=== PATIENT | female | born 1950 | race Caucasian/White ===

== ENCOUNTER → 2017-03-11 | Outpatient (CLI) | payer OTHER, MEDICARE | LOC: CIMAGING 14:28 | PROVIDERS: ATTEND Internal Medicine | DX: Z12.31 Encounter for screening mammogram for malignant neoplasm of breast (principal) | CPT/HCPCS: G0202 ==

== ENCOUNTER 2017-08-04 19:32 | Observation (INO) | payer OTHER, MEDICARE ==
--- NOTE | 2017-08-04 19:40 | EDPHY ---
H & P Source: Patient HPI/ROS: HPI CHIEF COMPLAINT: Shortness of breath, dyspnea on exertion HISTORY OF PRESENT ILLNESS: Patient very pleasant 67-year-old female, significant past medical history for asthma does not take any daily medications , she presents emergency room stating that for the past 6 days she has had worsening shortness of breath with dyspnea on exertion. She states on Wednesday she know she was short of breath. When she walks her dog she felt short of breath and afterwards it took a while for her to regain her breath. She thought maybe was her asthma acting up she used her albuterol inhaler which did not really help. She then noticed a mi walk to [place] and got dyspnea on exertion had to stop and take a break. Sometimes she gets chest discomfort, pressure in center of her chest to her back with exertion. Does have some mild pleuritic pain when she takes deep breath in. Denies crushing or substernal chest pain. Denies any jaw pain or arm pain numbness or tingling or focal nausea vomiting or weakness. Does complain of dysuria is where she has shortness of breath. Dry bronchitic cough. No fever. Past Medical History: Asthma Past Surgical History: No recent surgery Social History: Denies drugs alcohol tobacco. 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 ROS REVIEW OF SYSTEMS: A comprehensive 10 point review of systems is otherwise negative aside from elements mentioned in the history of present illness. Exam Constitutional appears well nontoxic no acute distress, triage nursing summary reviewed, vital signs reviewed, awake/alert. Eyes normal conjunctivae and sclera, EOMI, PERRLA. HENT normal inspection, atraumatic, moist mucus membranes, no epistaxis, neck supple/ no meningismus, no raccoon eyes. Respiratory bronchitic sounding cough on exam otherwise clear lungs. Cardiovascular rate normal, regular rhythm, no murmur, no edema, distal pulses normal. Gastrointestinal soft, non-tender, no rebound, no guarding, normal bowel sounds, no distension, no pulsatile mass. Genitourinary no CVA tenderness. Musculoskeletal no midline vertebral tenderness, full range of motion, no calf swelling, no tenderness of extremities, no meningismus, good pulses, neurovascularly intact. Skin pink, warm, & dry, no rash, skin atraumatic. Neurologic awake, alert and oriented x 3, AAOx3, moves all 4 extremities equally, motor intact, sensory intact, CN II-XII intact, normal cerebellar, normal vision, normal speech. Psychiatric normal mood/affect. Heme/Lymph/Immune no lymphadenopathy. Differential Diagnosis: Includes but is not limited to in a particular order, upper respiratory tract infection, bronchitis, viral syndrome, pneumonia, pneumothorax, CHF, acute coronary syndrome, influenza Medical Decision Making: Plan for this patient EKG, full cardiac care unit nurse, DuoNeb breathing treatment to see if this improves her shortness of breath, basic blood work, troponin, electrolytes and influenza and re-evaluate. Re-evaluation: EKG interpretation by me on record in [facility] system. Impression time of EKG 1952, sinus rhythm rate of 65. I do not appreciate acute ischemic change. No ST elevation or ST depression no significant T-wave abnormalities. Unremarkable nonischemic EKG. 2025: Patient re-evaluated feels much better after a DuoNeb breathing treatment. Good air movement. States this sensation of shortness of breath is much improved after DuoNeb breathing treatment. 2121: Patient requesting discharge she feels much better after DuoNeb breathing treatment. I told her that we should walker vigorously rather emergency room make sure does not not controlled of breath or develops chest pain. 2129: Patient ambulated throughout the emergency room if develops chest discomfort substernal radiates to her back. She did have some mild shortness of breath. Due to the chest discomfort with exertion and shortness of breath she will be admitted over the hospital for cardiac evaluation and rule out. She has agreed for this. Agrees for transfer. Agrees for admission. Reason for admission chest discomfort shortness of breath worse with exertion. Repeat Ekg: Time of repeat EKG 2135, sinus arrhythmia otherwise no acute ischemic change. Appreciate ST elevation. No significant T-wave abnormalities. No significant ST depression. 2157: Patient declined aspirin full dose here as it upset stomach additionally decline nitroglycerin. She has agreed for admission for further cardiac evaluation. Patient agrees for hospital admission over [facility] for chest pain and dyspnea on exertion cardiac rule out. I did speak with the hospitalist service Dr. Pitt who agrees to admit this patient. Here in this emergency room EKGs are nonischemic. Troponin negative. Chest x- ray unremarkable. Unfortunately at this time [facility] is full. Patient still would like to go to [facility]. She understands she will need to board in the emergency room briefly until bed opens up up stairs. I did speak with Dr. Krista Mckee who agrees to accept the patient in transfer to the ER. Hospitalist service to see. (Giancarlo Delaney) Constitutional: Initial Vital Signs Temperature (C) 36.6 C 08/04/17 19:35 Heart Rate 74 08/04/17 19:35 Respiratory Rate 18 08/04/17 19:35 Blood Pressure 142/91 H 08/04/17 19:35 O2 Sat (%) 96 08/04/17 19:35 O2 Delivery Mode Room Air Allergies/Adverse Reactions: promethazine HCl [From Phenergan] Allergy (Verified 06/08/13 13:08) Sulfa (Sulfonamide Antibiotics) Allergy (Verified 06/08/13 13:08) Home Medications: Medication Instructions Recorded Topiramate [Topamax 25MG (*)] 25 mg PO DAILY 08/23/09 Acetaminophen [Tylenol 325mg (*)] 325 - 650 mg PO DAILY PRN 08/05/17 Cholecalciferol Vit D3 [Vitamin D3 1,000 units PO DAILY 08/05/17 (*)] Glucosamine/Chondroitin 1 each PO DAILY 08/05/17 [Glucosamine/Chondroitin (*)] Herbals/Supplements -Info Only 1 ea PO DAILY 08/05/17 Ibuprofen [Motrin (*)] 200 - 400 mg PO DAILY PRN 08/05/17 Levalbuterol Inhaler [Xopenex Hfa 1 puffs IH TID PRN 08/05/17 Inhaler (*)] Medical Decision Making ED Course/Re-evaluation: 729: Pt had episode of cp. Lasted 3-4 minutes, now completely resolved. Repeat EKG: NSR, 66, no ST/T changes, troponin ordered. (Chio Brown) - Data Points Laboratory Results: Laboratory Results 08/04/17 20:00 08/04/17 20:00 Medications Given: Discontinued Medications Acetaminophen (Tylenol) 650 mg PO Q4HRS PRN PRN Reason: Pain, Mild/Fever, Can Take PO Stop: 01/31/18 22:24 Last Admin: 08/05/17 11:09 Dose: 650 mg Albuterol/Ipratropium (Duoneb) 3 ml IH EDNOW ONE Stop: 08/04/17 19:47 Last Admin: 08/04/17 20:08 Dose: 3 ml Aspirin Buffered (Aspirin Ec) 325 mg PO ONCALL ONE Stop: 08/05/17 10:54 Last Admin: 08/05/17 11:09 Dose: 325 mg Diazepam (Valium) 5 mg PO ONCALL ONE Stop: 08/05/17 10:54 Last Admin: 08/05/17 11:09 Dose: 5 mg Diphenhydramine HCl (Benadryl) 25 mg PO ONCALL ONE Stop: 08/05/17 10:54 Last Admin: 08/05/17 11:09 Dose: 25 mg Enoxaparin Sodium (Lovenox) 40 mg SC DAILY DELMAR Stop: 02/01/18 08:59 Last Admin: 08/05/17 17:17 Dose: Not Given Famotidine (Pepcid) 20 mg PO ONCALL ONE Stop: 08/05/17 10:54 Last Admin: 08/05/17 11:09 Dose: 20 mg Sodium Chloride (Ns) 1,000 mls @ 0 mls/hr IV EDNOW ONE; Wide Open PRN Reason: Protocol Stop: 08/04/17 19:47 Last Admin: 08/04/17 20:06 Dose: 1,000 mls Departure - Departure Disposition: [facility] Inpatient Acute Clinical Impression: Shortness of breath Chest pain Qualifiers: Chest pain type: unspecified Qualified Code(s): R07.9 - Chest pain, unspecified Condition: Fair
[2017-08-04] MEDS ORDERED: IPRATROPIUM/ALBUTEROL 3 ML DEYVIAL IH ONE (19:46)
[2017-08-04] MEDS ORDERED: NS 1,000 ML IV ONE (19:46)
--- NOTE | 2017-08-04 19:55 | CPEKG ---
Heart Rate: 65 RR Interval: 923 P-R Interval: 140 QRSD Interval: 88 QT Interval: 396 QTC Interval: 412 P [place]: -4 QRS [place]: 45 T Wave [place]: 35 EKG Severity - NORMAL ECG - EKG Impression: SINUS RHYTHM Electronically Signed By: Giancarlo Delaney 04-Aug-2017 22:09:21
[2017-08-04 20:04] LABS: PLATELET COUNT 221 10^3/uL (150-400)
[2017-08-04 20:17] LABS: INR 0.96 (0.83-1.16); PROTIME(PATIENT) 12.7 SEC (12.0-15.0)
[2017-08-04 20:25] LABS: CREATINE KINASE 44 IU/L (0-156)
--- NOTE | 2017-08-04 21:38 | CPEKG ---
Heart Rate: 71 RR Interval: 845 P-R Interval: 148 QRSD Interval: 88 QT Interval: 396 QTC Interval: 431 P [place]: 74 QRS [place]: 34 T Wave [place]: 16 EKG Severity - OTHERWISE NORMAL ECG - EKG Impression: SINUS ARRHYTHMIA, RATE 55-79 Electronically Signed By: Giancarlo Delaney 04-Aug-2017 22:09:21
[2017-08-04] MEDS ORDERED: ONDANSETRON DISINTEGRATING 4 MG TAB PO PRN (22:25)
[2017-08-04] MEDS ORDERED: ONDANSETRON 4 MG/2 ML VIAL IVP PRN (22:25)
[2017-08-04] MEDS ORDERED: ALBUTEROL 3 ML DEYVIAL IH PRN (23:38)
[2017-08-05] MEDS: ACETAMINOPHEN 325 MG TAB PO PRN ×2 (00:25→11:09)
--- NOTE | 2017-08-05 00:54 | PDGENHP ---
History and Physical - Chief Complaint Chest pain - History of Present Illness 67 yo F w/ hx of exercise induced asthma presents with chest tightness and CAMARENA. Patient is usually very healthy and is currently training for a race. She reports she had a bad cold in May but thinks this improved. Then, 3 days ago after a run, she began to notice central chest discomfort and CAMARENA. This has persisted since, requiring her to take brakes after walking even short distances. She received a nebulizer treatment in the ED that she only found minimally helpful. Of note, patient reports a cardiac cath about [address] Lopez that was normal. This was performed because her father had CHF and congenital narrowing of the coronary arteries. History Information - Allergies/Home Medication List Allergies/Adverse Reactions: promethazine HCl [From Phenergan] Allergy (Verified 06/08/13 13:08) Sulfa (Sulfonamide Antibiotics) Allergy (Verified 06/08/13 13:08) Home Medications: NO HOME MEDS 08/23/09 [Last Taken Unknown] I have personally reviewed and updated: family history, medical history - Past Medical History asthma - Surgical History Reports: no pertinent surgical hx - Family History Positive for: CAD Additional family history: CHF - Social History Smoking Status: Never smoked Review of Systems Review of Systems: ROS: 10pt was reviewed & negative except for what was stated in HPI & below Physical Exam Physical Exam: Temp Pulse Resp BP Pulse Ox 36.5 C 77 20 129/72 H 96 08/04/17 23:17 08/05/17 00:26 08/05/17 00:26 08/05/17 00:26 08/05/17 00:26 Constitutional: no apparent distress, not in pain Eyes: PERRL, EOMI Ears, Nose, Mouth, Throat: moist mucous membranes, no oral mucosal ulcers Cardiovascular: regular rate and rhythym, no murmur, rub, or gallop Respiratory: no respiratory distress, no rales or rhonchi Gastrointestinal: normoactive bowel sounds, soft, non-tender abdomen Skin: warm, normal color Musculoskeletal: full muscle strength, no muscle tenderness Neurologic: AAOx3, CN II-XII Intact Psychiatric: interacting appropriately, not anxious Lab Data & Imaging Review 08/04/17 20:00 08/04/17 20:00 WBC 5.08 10^3/uL (3.80-9.50) 08/04/17 20:00 RBC 4.70 10^6/uL (4.18-5.33) 08/04/17 20:00 Hgb 14.4 g/dL (12.6-16.3) 08/04/17 20:00 Hct 41.0 % (38.0-47.0) 08/04/17 20:00 MCV 87.2 fL (81.5-99.8) 08/04/17 20:00 MCH 30.6 pg (27.9-34.1) 08/04/17 20:00 MCHC 35.1 g/dL (32.4-36.7) 08/04/17 20:00 RDW 13.2 % (11.5-15.2) 08/04/17 20:00 Plt Count 221 10^3/uL (150-400) 08/04/17 20:00 MPV 10.0 fL (8.7-11.7) 08/04/17 20:00 Neut % (Auto) 53.1 % (39.3-74.2) 08/04/17 20:00 Lymph % (Auto) 36.0 % (15.0-45.0) 08/04/17 20:00 Rosebud % (Auto) 9.3 % (4.5-13.0) 08/04/17 20:00 Eos % (Auto) 0.8 % (0.6-7.6) 08/04/17 20:00 Baso % (Auto) 0.6 % (0.3-1.7) 08/04/17 20:00 Nucleat RBC Rel Count 0.0 % (0.0-0.2) 08/04/17 20:00 Absolute Neuts (auto) 2.70 10^3/uL (1.70-6.50) 08/04/17 20:00 Absolute Lymphs (auto) 1.83 10^3/uL (1.00-3.00) 08/04/17 20:00 Absolute Monos (auto) 0.47 10^3/uL (0.30-0.80) 08/04/17 20:00 Absolute Eos (auto) 0.04 10^3/uL (0.03-0.40) 08/04/17 20:00 Absolute Basos (auto) 0.03 10^3/uL (0.02-0.10) 08/04/17 20:00 Absolute Nucleated RBC 0.00 10^3/uL (0-0.01) 08/04/17 20:00 Immature Gran % 0.2 % (0.0-1.1) 08/04/17 20:00 Immature Gran # 0.01 10^3/uL (0.00-0.10) 08/04/17 20:00 PT 12.7 SEC (12.0-15.0) 08/04/17 20:00 INR 0.96 (0.83-1.16) 08/04/17 20:00 APTT 26.9 SEC (23.0-38.0) 08/04/17 20:00 D-Dimer 0.29 ug/mLFEU (0.00-0.50) 08/04/17 20:00 Sodium 142 mEq/L (135-145) 08/04/17 20:00 Potassium 4.3 mEq/L (3.5-5.2) 08/04/17 20:00 Chloride 102 mEq/L (97-110) 08/04/17 20:00 Carbon Dioxide 25 mEq/l (22-31) 08/04/17 20:00 Anion Gap 15 mEq/L (8-16) 08/04/17 20:00 BUN 19 mg/dL (7-23) 08/04/17 20:00 Creatinine 0.8 mg/dL (0.6-1.0) 08/04/17 20:00 Estimated GFR > 60 08/04/17 20:00 Glucose 91 mg/dL (70-100) 08/04/17 20:00 Calcium 10.6 mg/dL (8.5-10.4) H 08/04/17 20:00 Magnesium 2.0 mg/dL (1.6-2.3) 08/04/17 20:00 Total Bilirubin 1.1 mg/dL (0.1-1.4) 08/04/17 20:00 Conjugated Bilirubin 0.3 mg/dL (0.0-0.5) 08/04/17 20:00 Unconjugated Bilirubin 0.8 mg/dL (0.0-1.1) 08/04/17 20:00 AST 28 IU/L (14-46) 08/04/17 20:00 ALT 47 IU/L (9-52) 08/04/17 20:00 Alkaline Phosphatase 107 IU/L (38-126) 08/04/17 20:00 Creatine Kinase 44 IU/L (0-156) 08/04/17 20:00 CK-MB (CK-2) Fraction 0.34 ng/mL (0.00-4.55) 08/04/17 20:00 Troponin I < 0.012 ng/mL (0.000-0.034) 08/04/17 20:00 NT-Pro-B Natriuret Pep 54 pg/mL (0-125) 08/04/17 20:00 Total Protein 7.3 g/dL (6.3-8.2) 08/04/17 20:00 Albumin 4.2 g/dL (3.5-5.0) 08/04/17 20:00 Lipase 62 IU/L (23-300) 08/04/17 20:00 Influenza A,B Rapid NEGATIVE FOR FLU (NEGATIVE) 08/04/17 19:55 Imaging Review: Imaging Impressions Chest X-Ray 08/04/17 19:46 Impression: 1. COPD. 2. No definite pneumonia. Visualized and Interpreted EKG results: Yes EKG Interpretation: Positive for: normal sinsus rhythm Assessment & Plan Assessment: 67 yo F w/ hx of exercise induced asthma presents with CP and CAMARENA. Plan: 1. Chest pain - Described as central chest tightness and associated with CAMARENA. Etiology of this is unclear. Possibilities include CAD, lingering effects of infection in May, and poorly controlled respiratory disease. CXR does show features c/w obstructive pulmonary disease. - Admit to PCU for observation - Monitor on telemetry, trend cardiac enzymes - Graded exercise stress test ordered for the morning - If stress test normal, would recommend outpatient PFTs as patient may benefit from increased therapy for her obstructive pulmonary disease 2. Asthma - Patient states this is exercise induced, she takes only Xopenex PRN for this. Diet - Regular, NPO @ MN pending risk stratification Code - Full Ppx - LMWH Dispo - Admit to PCU under observation status
--- NOTE | 2017-08-05 07:18 | CPEKG ---
Heart Rate: 66 RR Interval: 909 P-R Interval: 156 QRSD Interval: 84 QT Interval: 388 QTC Interval: 407 P [place]: 59 QRS [place]: 48 T Wave [place]: 44 EKG Severity - NORMAL ECG - EKG Impression: SINUS RHYTHM Electronically Signed By: Chilo Boateng 07-Aug-2017 08:22:33
--- NOTE | 2017-08-05 08:11 | HOSPPROG ---
Hospitalist Progress Note Assessment/Plan: #Acute chest pain -EKGs/trop negative for ischemia -exercise treadmill positive. Cath showed no CAD #Asthma: h/o exercise-induced -referral to pulmonology Disp: DC today Subjective: no CP today Objective: Vital Signs Temp Pulse Resp BP Pulse Ox 36.7 C 64 18 111/75 96 08/05/17 07:54 08/05/17 07:54 08/05/17 07:54 08/05/17 07:54 08/05/17 07:07 Laboratory Results 08/05/17 05:40 08/04/17 08/05/17 08/06/17 05:59 05:59 05:59 Intake Total 1000 Balance 1000 PT 12.7 SEC (12.0-15.0) 08/04/17 20:00 INR 0.96 (0.83-1.16) 08/04/17 20:00 - Physical Exam Constitutional: no apparent distress Eyes: PERRL Ears, Nose, Mouth, Throat: moist mucous membranes Cardiovascular: regular rate and rhythym, no murmur, rub, or gallop, No edema Respiratory: no respiratory distress, No expiratory wheeze, No inspiratory crackles Gastrointestinal: normoactive bowel sounds, soft, non-tender abdomen Genitourinary: no bladder fullness Skin: warm Musculoskeletal: full muscle strength Neurologic: AAOx3, CN II-XII Intact Psychiatric: interacting appropriately ICD10 Worksheet Patient Problems: Problems Problem Status Onset Chest pain Acute Shortness of breath Acute
[2017-08-05] MEDS ORDERED: ENOXAPARIN 40 MG/0.4 ML SYR SC SCH (09:00)
[2017-08-05] MEDS ORDERED: ASPIRIN EC 325 MG TAB PO ONE (10:53)
[2017-08-05] MEDS ORDERED: TEMAZEPAM 15 MG CAP PO PRN (10:53)
[2017-08-05] MEDS ORDERED: DIAZEPAM 5 MG TAB PO ONE (10:53)
[2017-08-05] MEDS ORDERED: NITROGLYCERIN 0.4 MG BTL SL PRN (10:53)
[2017-08-05] MEDS ORDERED: diphenhydrAMINE 25 MG CAP PO ONE (10:53)
[2017-08-05] MEDS ORDERED: FAMOTIDINE 20 MG TAB PO ONE (10:53)
--- NOTE | 2017-08-05 10:55 | PDPROPOC ---
Sedation Plan of Care Sedation Plan of Care: vital signs stable, mental status noted, patient educated of risks, benefits, alternatives, patient can tolerate sedation ASA Classification: ASA 2 Planned drugs: fentanyl, midazolam Mallampati Score: Class 1 Mallampati Reference Image:
--- NOTE | 2017-08-05 10:56 | PDHPUP ---
History & Physical Update H&P update statement: This history and physical update is based on an assessment of the patient which was completed after admission or registration (within 24 hours), but prior to the surgery/procedure. H&P update: H&P reviewed & patient examined, no change in patient's condition since H&P completed
[2017-08-05] MEDS ORDERED: DIAZEPAM 5 MG TAB ONE (11:13)
--- NOTE | 2017-08-05 11:45 | CPR ---
[f rep st] NONINVASIVE CARDIAC PROCEDURE REPORT DATE OF PROCEDURE: 08/05/2017 PROCEDURE: Exercise treadmill test. INDICATION: The patient is a 67-year-old female who developed back pain which radiated to her chest and significant dyspnea on exertion after her run on Wednesday. Since that time, she has had predictabl e chest discomfort with even minimal exercise. She denies any history of hypertension, hyperlipidemi a, diabetes, or tobacco use. Her father was diagnosed with coronary disease and told he had small ar teries at the age of 78. DESCRIPTION OF PROCEDURE: Consent was obtained and the patient was placed on continuous telemetry. Her resting EKG revealed normal sinus rhythm with a heart rate of 82. She has nonspecific ST-T wave changes diffusely. She walked on the treadmill for 6 minutes, but developed chest discomfort in the 1st stage of exercise. She had [address] depression with initial exercise and within 5 minutes of e xertion, she had at least [address] depression diffusely. There was also ST elevation in AVR of gre ater than 1 mm. The stress test was terminated secondary to ST changes and chest pressure. The myla ent was monitored and her chest discomfort resolved at 8 minutes into recovery. She described it as a pressure. Her EKG changes improved at that time as well. PLAN: Positive exercise treadmill test. The patient will be taken to the director of labor and delivery later this aftern oon. /[id number]/MODL
--- NOTE | 2017-08-05 12:46 | GCON ---
[f rep st] CONSULTATION CARDIAC CONSULTATION DATE OF CONSULTATION: 08/05/2017 CHIEF COMPLAINT: Shortness of breath and chest discomfort. HISTORY OF PRESENT ILLNESS: The patient is a 67-year-old female who presented to the hospital with dyspnea on exertion and back pain which radiated to her chest. She is a very active individual and has been training for a 5K. On Wednesday, she went for a walk/run and after returning from her run, she developed significant shortness of breath as well as back pain which radiated to her chest. Since then, she has noted back pain and even more prominent dyspnea on exertion with even minimal exercise such as walking up a flight of stairs or down the [place]. She had an exercise treadmill test today which was positive for ischemia. She is currently chest pain free. She denies any history of diabetes , hyperlipidemia, hypertension, or ongoing tobacco use. Her father was told he had small arteries at age of 78. PAST MEDICAL HISTORY: Migraines. PAST SURGICAL HISTORY: Noncontributory. FAMILY HISTORY: Her father was told he had small arteries at the age of 78. He did require pacemaker later on as well. SOCIAL HISTORY: She is currently accompanied by her . 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 She denies any tobacco use or drug use. She is very active, exercising on a regular basis. HOME MEDICATIONS: Topamax 25 mg daily. Xopenex inhaler, Motrin p.r.n., herbal supplement, vitamin D3, Tylenol p.r.n. ALLERGIES: Phenergan and sulfa. REVIEW OF SYSTEMS: Negative except for what is stated in the H and P. PHYSICAL EXAMINATION: GENERAL: Patient appears in no acute distress. VITALS: Blood pressure 111/75, heart rate 64, oxygen saturation of 96% on room air. Afebrile. NECK: No carotid bruits or JVD present. LUNGS: Clear to auscultation. No wheezes, rhonchi, or crackles auscultated. CARDIAC: Regular rate and rhythm without any significant murmurs, rubs, or gallops appreciated. ABDOMEN: Soft, nontender, nondistended. Bowel sounds present. EXTREMITIES: Palpable pulses bilaterally without any evidence of edema. NEUROLOGIC: Nonfocal. PSYCHIATRIC: Mood and affect appropriate. SKIN: No obvious rashes or ecchymosis identified. LABORATORY: CBC within normal limits. BMP within normal limits except for an elevated sodium of 148. Troponin negative x2. BNP 54. Lipase 62. D-dimer 0.29. INR 0.96. DIAGNOSTIC STUDIES: Resting EKG reveals normal sinus rhythm at a rate of [address]-T wave changes. Exercise treadmill test and showed at least [address] depression diffusely with ST elevation in AVR concerning for coronary ischemia. Chest x-ray shows COPD without pneumonia. ASSESSMENT: The patient is a 67-year-old female who presents with angina and abnormal exercise treadmill test. PLAN: The patient is a 67-year-old female who presents to the hospital with dyspnea on exertion as well as back and chest pain concerning for coronary ischemia. Her exercise treadmill test was positive, suggesting ischemia with at least [address] depression diffusely and [address] elevation in AVR. She also developed chest discomfort on the treadmill, which resolved 8 minutes into recovery. Further evaluation with a coronary angiogram was discussed with the patient. The risks, benefits, and alternatives were discussed and she would like to proceed. She will be scheduled for an angiogram later this afternoon. /[id number]/MODL MTDD
--- NOTE | 2017-08-05 12:50 | ASMTCASEMG ---
Living Arrangements What is your living Answers: With Spouse arrangement? Who do you live with? Type Of Residence What kind of residence do Answers: House you live in? Discharge Plan Comments Coordination Status Comments Notes: Discussed pts case in morning rounds. Pt is a 67 y/o female admitted for shortness of breath and dyspnea on exertion. Pt will most likely d/c independent when medically stable. No therapies ordered at this time. CM available for changes. Plan: Independent Date Signed: 08/05/2017 12:49 PM Electronically Signed By:ANGELIA Ambriz
[2017-08-05] MEDS ORDERED: LIDOCAINE 1% 300 MG/30 ML SDV ONE (13:58)
[2017-08-05] MEDS ORDERED: MIDAZOLAM 2 MG/2 ML VIAL ONE (13:58)
[2017-08-05] MEDS ORDERED: fentaNYL 100 MCG/2 ML INJ ONE (13:58)
[2017-08-05] MEDS ORDERED: HEPARIN 10,000 UNIT/10 ML MDV (1,000 UNIT/ML) ONE (13:59)
[2017-08-05] MEDS ORDERED: IOPAMIDOL (ISOVUE-370) 150 ML BTL IV ONE (13:59)
[2017-08-05] MEDS ORDERED: VERAPAMIL 5 MG/2 ML VIAL ONE (13:59)
[2017-08-05] MEDS ORDERED: ATROPINE SULFATE 1 MG/10 ML SYR IVP PRN (15:30)
--- NOTE | 2017-08-05 15:33 | PDDXCAT ---
Diagnostic Cath Note - . Date: 08/05/17 [employer] Designer: John Indication: Class I/II angina, intolerance to med therapy or failure to respond High-risk criteria on non-invasive testing: high-risk treadmill score (score<=- 11) - Procedure Access: left wrist Procedure: left heart catheterization - Materials Left Heart Cath size: 5F Left Heart Cath materials: JL3.5, JR4.0 - Findings-Left Heart Catheterization LM: Normal LAD: Normal LCX: Normal RCA: Dominant: Normal Complications: None Estimated blood loss: <50ml Closure method: TR Band Assessment: Angiographically normal coronary arteries Plan: Medical therapy Patient Problems: Problems Problem Status Onset Chest pain Acute Shortness of breath Acute
[2017-08-05 17:10] VITALS: BP 111/67; PULSE 61; RESP 12; TEMP 98; O2SAT 95
--- NOTE | 2017-08-05 17:51 | ECHO ---
[email or web address] [address] Main: [phone] Fax: Transthoracic Echocardiogram Name: RINA GRANDE MR#: [id number] Study Date: 08/05/2017 Study Time: 03:43 PM Date of : 1950 Age: 67 year(s) Height: 172.7 cm (68 in.) Weight: 69.85 kg (154 lb.) BSA: 1.83 m2 Gender: Female Examination: Echo Indication: Post Cath Image Quality: Contrast: Requested by: Man Lopez BP: 137 mmHg/82 mmHg Heart Rate: Rhythm: Normal sinus rhythm Indication: Post Cath Procedure Staff Ship Propeller Finisher: Kane Parnell RDCS Reading Physician: Ronni Valentin Requesting Provider: Conclusions: Normal size left ventricle. Normal global systolic LV function. EF is 67 %. No regional wall motion abnormality. Diastolic dysfunction is present. . Measurements: Chambers Valvular Assessment AV/MV Valvular Assessment TV/PV Normal Normal Normal Name Value Range Name Value Range Name Value Range Ao Sandra (MM): 2.6 cm (2.2 cm-3.7 AV Vmax: 1.29 m/s (1 m/s-1.7 cm) m/s) IVSd (2D): 0.9 cm (0.6 cm-1.1 AV maxP mmHg ( - ) cm) LVOT Vmax: 0.62 m/s (0.7 m/s-1.1 LVDd (2D): 4.1 cm (3.9 cm-5.3 m/s) cm) MV E Vmax: 0.71 m/s ( - ) LVDs (2D): 2.6 cm (2.1 cm-4 MV A Vmax: 0.78 m/s ( - ) cm) MV E/A: 0.91 ( - ) LVPWd (2D): 1.0 cm ( - ) LVEF (2D): 67 (>=54 %) Continued Measurements: Chambers Valvular Assessment AV/MV Name Value Name Value LADs Lon.3 cm MV E/E' Septal: 9.20 LA Area: 14.1 cm2 MV E/E' Lateral: 8.90 Patient: RINA GRANDE Study Date: 08/05/2017 Page 1 of 2 03:43 PM Findings: Left Ventricle: Normal size left ventricle. No LV hypertrophy. Normal global systolic LV function. EF is 67 %. No regional wall motion abnormality. Diastolic dysfunction is present. . Right Ventricle: Normal size right ventricle. Normal RV function. Left Atrium: The left atrium is normal in size. Right Atrium: The right atrium is normal in size. Mitral Valve: The mitral valve is normal in appearance and function. Aortic Valve: The aortic valve is normal in appearance and function. There is no aortic valve regurgitation. Tricuspid Valve: The tricuspid valve is normal in appearance and function. Pulmonic Valve: The pulmonic valve is normal in appearance and function. Aorta: The aorta is normal. Pericardium: No pericardial effusion. There is pericardial fat. (No Signature Object) Patient: RINA GRANDE Study Date: 08/05/2017 Page 2 of 2 03:43 PM [id number]
--- NOTE | 2017-08-05 19:58 | GDS ---
[f rep st] DISCHARGE SUMMARY DISCHARGE DIAGNOSES: 1. Atypical chest pain. 2. History of exercise-induced asthma. PROCEDURES: 1. Cardiac cath 08/05/2017 normal coronaries. 2. Exercise treadmill test. Positive exercise test with [address] depression diffusely. HISTORY OF PRESENT ILLNESS: A pleasant 67-year-old female with history of exercise-induced asthma, p resenting with chest tightness and dyspnea on exertion. She is very healthy and is currently trainin g for a 5K run. She reports having a bad cold in May, but thinks that improved. Three days ago after a run, she noticed central chest discomfort and dyspnea with exertion. This has persisted sin ce, requiring her to take breaks after walking even short distances. She received a neb treatment in the ED that only minimally helped. She had a cardiac catheterization [address] John benton hat was normal. HOSPITAL COURSE BY PROBLEM: 1. Chest pressure: Initial EKGs and troponins were negative for ischemia. She had no evidence of i nfection on x-ray. Negative D-dimer. She had a positive exercise treadmill with ST depression great er than 2 mm. Underwent cardiac catheterization that was negative for coronary artery disease. 2. Dyspnea: Negative D-dimer and normal cardiac catheterization. May be related to history of exer cise-induced asthma. I gave her referral for pulmonology. 3. Disposition: Patient is stable for discharge home. NEW MEDICATIONS: None. FOLLOWUP: Pulmonology for PFTs. /[id number]/MODL
== END 2017-08-05 19:23 | disposition home or self-care (01) ==
LOC: CED 19:32 → CEDHOLD 21:44 → F2W 08-05 07:43
PROVIDERS: ADMIT Family Medicine; ATTEND Internal Medicine
DX: R07.9 Chest pain, unspecified (principal); R94.39 Abnormal result of other cardiovascular function study; J45.909 Unspecified asthma, uncomplicated; J44.9 Chronic obstructive pulmonary disease, unspecified; Z82.49 Family history of ischemic heart disease and other diseases of the circulatory system; Z88.2 Allergy status to sulfonamides
CPT/HCPCS: 71045; 93005; 93017; 93306; 93454; 96360; 96361; 99285; C1769; G0378; J1200; J1644; J2250; J3010; Q9967; 80048-PO; 80053-PO; 80076-PO; 82550-PO; 82553-PO; 83690-PO; 83735-PO; 83880-PO; 84484-PO; 85025-PO; 85378-PO; 85610-PO; 85730-PO; 87400-PO

== ENCOUNTER 2017-08-22 21:42 | Emergency (ER) | payer OTHER, MEDICARE ==
[2017-08-22] MEDS ORDERED: NS 1,000 ML IV ONE (21:48)
[2017-08-22] MEDS ORDERED: KETOROLAC 30 MG/1 ML SDV IVP ONE (21:48)
[2017-08-22] MEDS ORDERED: DEXAMETHASONE 10 MG/ML VIAL IVP ONE (21:48)
[2017-08-22] MEDS ORDERED: HYDROmorphONE/DILAUDID 1 MG/ML INJ IVP ONE (21:48)
[2017-08-22] MEDS ORDERED: ONDANSETRON 4 MG/2 ML VIAL IVP ONE (21:48)
[2017-08-22 21:52] VITALS: TEMP 99.1
--- NOTE | 2017-08-22 22:00 | EDPHY ---
H & P Time Seen by Provider: 08/22/17 21:47 HPI/ROS: HPI Nausea vomiting and diarrhea. Migraine headache. 67-year-old female by private vehicle. This patient reports that last night at about midnight she developed nausea with vomiting and diarrhea as well as muscle aches and joint aches. She reports that 7:00 a.m. She developed a typical migraine headache. She has a history of migraine headaches. She states that this headache was gradual in onset and describes it as a frontal aching in her head. She reports that she felt better through the day but then started vomiting again tonight and her migraine headache worsened. She thinks that this is because she has become dehydrated. No ill contacts. No foreign travel. No change in diet. She denies respiratory symptoms. ROS: Constitutional: No fever, no chills. As above. Eyes: No discharge. No changes in vision. ENT: No sore throat. No nasal congestion or rhinorrhea. Respiratory: No cough. No shortness of breath. Cardiac: No chest pain, no palpitations. Gastrointestinal: No abdominal pain, as above. Genitourinary: No hematuria. No dysuria or increased frequency with urination. Musculoskeletal: No back pain. No neck pain. No myalgias or arthralgias. Skin: No rashes. Neurological: As above. No focal weakness or altered sensation. Past medical history: Exercise-induced asthma, recent admission for chest pain with negative coronary angiogram. Migraine headaches. , appendectomy. Social history: Nonsmoker. . Her brought her to the emergency department. No alcohol. Physical Exam: General Appearance: Alert, she appears mildly uncomfortable. She is not in distress. Pleasant and interactive. This patient is responding to questions appropriately and in full sentences. This patient appears well-hydrated and well-nourished. Eyes: Pupils equal and round no pallor or injection. No lid edema, erythema or injection. Mild photophobia. No nystagmus. Respiratory: There are no retractions, lungs are clear to auscultation with good air movement bilaterally. Cardiovascular: Regular rate and rhythm. No murmur. Gastrointestinal: Abdomen is soft and nontender, no masses, bowel sounds normal. No focal tenderness at McBurney's point. No Vázquez sign. Neurological: Motor sensory function is grossly intact. Cranial nerves are normal. Gait is normal. Skin: Warm and dry, no rashes. Musculoskeletal: Neck is supple and nontender. No pain on flexion of the neck. Extremities are symmetrical. All joints range without pain or impingement. Psychiatric: No agitation. No depression. Database: EKG: Imaging: Procedures: Emergency department course: Vital signs reviewed and are normal. An IV was placed. She was started on IV normal saline with 1-2 L to be given over the next 1-2 hours for dehydration. She reports she has had adverse reaction to Phenergan in the past. She will initially be given 4 mg of IV Zofran, 10 mg of IV Decadron, 0.5 mg of IV hydromorphone and 30 mg of IV Toradol. She has no contraindications to NSAIDs. Normal creatinine verified from her last admission to the hospital August 05 of this year. 10:40 p.m., patient re-evaluated. She reports resolution of her headache. She reports feeling much better. She is tolerating p.o. Fluids. She feels comfortable going home with her who will drive her and is requesting discharge. She was offered further observation which she declines. Repeat neurologic Assessment is nonfocal. Her neck is supple and nontender. I will prescribe her Zofran for nausea. Her influenza assay was negative. Follow-up and return to emergency department precautions were reviewed with her. All of her questions were answered. She was discharged in good condition. Differential Diagnosis: The differential diagnosis on this patient includes but is not limited to migraine headache, influenza, viral gastroenteritis, food-borne illness, dehydration. Meningitis, encephalitis, subarachnoid hemorrhage, cavernous sinus thrombosis, sagittal sinus thrombosis, temporal arteritis, vertebral artery dissection unlikely. This represents a partial list of diagnoses considered. These considerations are based on history, physical exam, past history, reassessment and diagnostic testing. Smoking Status: Never smoked Constitutional: Initial Vital Signs Temperature (C) 37.3 C 08/22/17 21:49 Heart Rate 81 08/22/17 21:49 Respiratory Rate 20 08/22/17 21:49 Blood Pressure 113/70 08/22/17 21:49 O2 Sat (%) 97 08/22/17 21:49 O2 Delivery Mode Room Air Allergies/Adverse Reactions: promethazine HCl [From Phenergan] Allergy (Verified 08/22/17 21:48) Sulfa (Sulfonamide Antibiotics) Allergy (Verified 08/22/17 21:48) Home Medications: Medication Instructions Recorded Acetaminophen 500 mg PO 08/22/17 Ondansetron Odt [Zofran Odt 4 mg 4 mg PO Q4PRN PRN #10 tab 08/22/17 (*)] Medical Decision Making - Data Points Laboratory Results: 08/22/17 22:10 Influenza A,B Rapid NEGATIVE FOR FLU (NEGATIVE) Medications Given: Discontinued Medications Dexamethasone (Decadron Injection) 10 mg IVP EDNOW ONE Stop: 08/22/17 21:49 Last Admin: 08/22/17 22:02 Dose: 10 mg Hydromorphone HCl (Dilaudid) 0.5 mg IVP EDNOW ONE Stop: 08/22/17 21:49 Last Admin: 08/22/17 22:01 Dose: 0.5 mg Sodium Chloride (Ns) 1,000 mls @ 0 mls/hr IV ONCE ONE; Wide Open PRN Reason: Protocol Stop: 08/22/17 21:49 Last Admin: 08/22/17 22:01 Dose: 1,000 mls Ketorolac Tromethamine (Toradol) 30 mg IVP EDNOW ONE Stop: 08/22/17 21:49 Last Admin: 08/22/17 22:03 Dose: 30 mg Ondansetron HCl (Zofran) 4 mg IVP EDNOW ONE Stop: 08/22/17 21:49 Last Admin: 08/22/17 22:06 Dose: 4 mg Departure - Departure Disposition: Home, Routine, Self-Care Clinical Impression: Migraine headache, Vomiting and diarrhea, Dehydration Condition: Good Instructions: Gastroenteritis (ED), Acute Headache (ED) Additional Instructions: Read and follow provided instructions. Follow-up with your primary care physician in the next 1-2 days for re- evaluation. Take medication as prescribed for nausea. Return to the emergency department for worsening symptoms, worsening headache, neck pain, vomiting and inability to keep fluids down despite medication, high fever or other serious concerns. Prescriptions: Ondansetron Odt [Zofran Odt 4 mg (*)] 4 mg PO Q4PRN PRN #10 tab PRN Reason: For Nausea & Vomiting
[2017-08-22] MEDS ORDERED: ONDANSETRON 4MG PREPACK#2 BTL TAKEHOME ONE (22:41)
[2017-08-22 22:43] VITALS: BP 102/52; PULSE 67; RESP 16; O2SAT 95
== END 2017-08-22 22:54 | disposition home or self-care (01) ==
LOC: CED 21:42
DX: G43.909 Migraine, unspecified, not intractable, without status migrainosus (principal); E86.0 Dehydration; E86.9 Volume depletion, unspecified; R19.7 Diarrhea, unspecified; R11.10 Vomiting, unspecified; J45.909 Unspecified asthma, uncomplicated
CPT/HCPCS: 96361; 96374; 96375; 99284; J1100; J1170; J1885; J2405; 87400-PO

== ENCOUNTER → 2017-10-07 | Outpatient (CLI) | payer OTHER, MEDICARE ==
[~2017-10-07] MED LIST: GADOBUTROL 10 ML VIAL IVP ONE
== END ==
LOC: FIMAGING 09:14
PROVIDERS: ATTEND Physician Assistant
DX: D33.2 Benign neoplasm of brain, unspecified (principal); R90.82 White matter disease, unspecified
CPT/HCPCS: 70553; A9585

== ENCOUNTER → 2017-12-23 | Outpatient (CLI) | payer OTHER, MEDICARE | LOC: CIMAGING 12:44 | PROVIDERS: ATTEND Obstetrics & Gynecology | DX: N63.21 Unspecified lump in the left breast, upper outer quadrant (principal); N60.02 Solitary cyst of left breast | CPT/HCPCS: 76641-PO ==

== ENCOUNTER 2018-01-05 10:05 | Emergency (ER) | payer OTHER, MEDICARE ==
[2018-01-05] MEDS ORDERED: NS 500 ML IV ONE (10:46)
[2018-01-05] MEDS ORDERED: METOCLOPRAMIDE 10 MG/2 ML VIAL IVP ONE (10:46)
[2018-01-05] MEDS ORDERED: ACETAMINOPHEN 500 MG TAB PO ONE (10:47)
[2018-01-05] MEDS ORDERED: LET GEL TOPICAL 1 EA SYR TP ONE (10:47)
--- NOTE | 2018-01-05 12:07 | EDPHY ---
H & P Time Seen by Provider: 01/05/18 10:32 HPI/ROS: This patient reports that she started developing headache this morning frontal location left hemicranial moderate intensity reminiscent of prior migraines stone had [place] to full migraine-no nausea vomiting or aura symptoms. She felt that taking run might help her migraines so she went for a run which she does routinely while jogging downhill on a sidewalk she tripped falling onto her face with associated abrasion to left knee left shoulder face and nasal injury. She reports that she was briefly dazed and saw stars briefly but did not lose consciousness. She reports that her headache worsens since the fall is currently 6 or 7/10 intensity. She has mild photophobia associated with this. No other associated headache symptoms migraine symptoms. Her brought her in by private vehicle for further evaluation. ROS: Constitutional: Patient otherwise felt well prior to the fall. Neuro: No confusion. No focal numbness or tingling. No aura no focal weakness. HEENT: Patient reports lip injury but denies any dental injuries. She reports brief epistaxis from the left knee area after the impact to her nose lasted less than 15 min and has resolved. She cannot breathe through both nares. She reports 6 or 7/10 pain to the nasal bridge. Musculoskeletal: No midline neck or back pain she does have left lateral neck pain of [id number] intensity. She also has mild discomfort to left shoulder that she attributes to abrasion contusion. She denies any bony pain that shoulder and no worsening with movement. She reports abrasion left knee but denies any bony pain in the knee and no difficulty walking since the injury occurred. She explains that she ran home after the incident. Pulmonary: No shortness of breath or chest wall pain. Cardiovascular: No heart palpitations or lightheadedness GI: No nausea or vomiting. No belly pain. 10 point ROS is otherwise negative Past Medical/Surgical History: Migraines Otherwise healthy Social History: No alcohol. She uses CBD well on average 2 times a month for her migraine headaches. No CBD with in recent days. No other recreational drugs. Nonsmoker Smoking Status: Never smoked Physical Exam: Physical exam: Vital signs are normal General: Patient is in no acute distress. HEENT: The patient has moderate swelling of the nasal bridge with associated moderate tenderness. Exam of the nares reveals no septal hematoma. No epistaxis currently. She is able to move air through both nares. The patient has a superficial 2 cm linear laceration oriented vertically in the center of her forehead with no front also muscle exposure or foreign bodies. Minimal bleeding stopped with direct pressure. She also has abrasion to the bridge of her nose and to her cheek and chin. These are superficial abrasions. No significant contamination. No full-thickness injuries from the abrasions. Eyes : Pupils are equal and reactive to light. Extraocular motions are intact. Optic fundi: Clear with no papilledema or hemorrhage. Ears: Clear bilaterally with no hemotympanum. Oropharynx: No dental trauma or malocclusion. No intraoral lacerations. She does have mild swelling to the left upper lip. Eyes: Pupils are equal and reactive to light. Extraocular motions are intact. Optic fundi: Clear with no papilledema or hemorrhage. Lungs: Clear to auscultation bilaterally Neck: Supple no meningismus. Cardiac: Regular rate and rhythm no murmur gallop or rub. Abdomen: Soft nontender no organomegaly Extremities: Atraumatic normal except for left shoulder with minimal tenderness the apex of the shoulder. Despite this she maintains full range of motion and 5/5 strength in AB duction flexion extension without change in pain. No deformity of the shoulder. No clavicle swelling or tenderness. Skin: Superficial abrasion to the left shoulder and left knee each few cm in size no full-thickness injuries. No contamination. Neuro: GCS of 15. Cranial nerves II through XII intact. 3/3 5 min memory is intact. Cerebellar exam is normal as judged by symmetric rapid hand movements bilaterally. No sensory or motor deficits are appreciated in her upper or lower extremities. Initial differential diagnosis: Migraine, tension headache, concussion, doubt cerebral contusion or subdural, nasal injury-nasal fracture versus traumatic hematoma, cervical muscle strain, abrasions Constitutional: Initial Vital Signs Temperature (C) 36.6 C 01/05/18 10:10 Heart Rate 88 01/05/18 10:10 Respiratory Rate 18 01/05/18 10:10 Blood Pressure 164/88 H 01/05/18 10:10 O2 Sat (%) 94 01/05/18 10:10 O2 Delivery Mode Room Air Allergies/Adverse Reactions: promethazine HCl [From Phenergan] Allergy (Verified 01/05/18 10:10) Sulfa (Sulfonamide Antibiotics) Allergy (Verified 01/05/18 10:10) Home Medications: Medication Instructions Recorded Hydrocodone/APAP 5/325 [[place] 1 - 2 tab PO Q4PRN PRN #15 tab 01/05/18 5/325 (*)] Methocarbamol [Robaxin 750 mg (*)] 750 - 1,500 mg PO QID PRN #30 tab 01/05/18 MDM/Departure - MDM Procedures: Procedure: Dermabond repair of facial injury After verbal consent the patient's wounds were treated with let solution for analgesia. There then described by our nurse. Under sterile conditions I used Dermabond to close the forehead superficial laceration 2 cm in length with good tissue approximation, hemostasis and cosmesis. Patient tolerated this well. There were no complications. Medications Given: Discontinued Medications Acetaminophen (Tylenol) 1,000 mg PO EDNOW ONE Stop: 01/05/18 10:48 Last Admin: 01/05/18 11:05 Dose: 1,000 mg Diphenhydramine HCl (Benadryl Injection) 25 mg IVP EDNOW ONE Stop: 01/05/18 10:47 Last Admin: 01/05/18 11:05 Dose: 25 mg Sodium Chloride (Ns) 500 mls @ 0 mls/hr IV ONCE ONE; Wide Open PRN Reason: Protocol Stop: 01/05/18 10:47 Last Admin: 01/05/18 11:05 Dose: 500 mls Metoclopramide HCl (Reglan Injection) 10 mg IVP EDNOW ONE Stop: 01/05/18 10:47 Last Admin: 01/05/18 11:05 Dose: 10 mg Tetracaine/Epinephrine/Lidocaine (Let Gel Topical) 1 ea TP EDNOW ONE Stop: 01/05/18 10:48 Last Admin: 01/05/18 11:05 Dose: 1 ea ED Course/Re-evaluation: IV Reglan, Benadryl and 1 L normal saline bolus Tylenol p.o. After meds, patient had relief of headache down a 6 for 01/04 to 10/05. Discussion: Patient presents with onset of headache characteristic early migraine headaches followed by a run and which she had mechanical fall and head injury consistent with concussion without LOC. Clinically no red flag findings that would suggest intracranial bleed. Her nasal injury may include a nasal bridge fracture that is not significantly displaced clinically. I counseled regarding this in some detail. No evidence of any associated complications. She has associated cervical strain and other abrasions. The patient was concerned about ongoing headache and potential trigger to migraine headaches. I explained the benefit of avoiding nonsteroidal anti-inflammatories of the drugs that could be anticoagulants for the next few days given her so seat head injury and recommended Tylenol and methocarbamol muscle relaxant P primarily for her symptoms. I did prescribe a small number of hydrocodone/Tylenol if needed for pain. She understands need to return emergency department should she develop severe headache despite medications, new onset of confusion, vomiting more than once or any other concerns. Also counseled regarding nasal injury to follow up with ENT specialist on-call-Dr. Ruiz if she feels she has any nasal asymmetry after swelling is resolved in the next 3-5 days. - Depart Disposition: Home, Routine, Self-Care Clinical Impression: Multiple abrasions Concussion Qualifiers: Encounter type: initial encounter Loss of consciousness presence/duration: without LOC Qualified Code(s): S06.0X0A - Concussion without loss of consciousness, initial encounter Migraine Qualifiers: Migraine type: without aura Status migrainosus presence: without status migrainosus Intractability: not intractable Qualified Code(s): G43.009 - Migraine without aura, not intractable, without status migrainosus Strain of neck muscle Qualifiers: Encounter type: initial encounter Qualified Code(s): S16.1XXA - Strain of muscle, fascia and tendon at neck level, initial encounter Facial laceration Qualifiers: Encounter type: initial encounter Qualified Code(s): S01.81XA - Laceration without foreign body of other part of head, initial encounter Nasal injury Qualifiers: Encounter type: initial encounter Qualified Code(s): S09.92XA - Unspecified injury of nose, initial encounter Condition: Good Instructions: Concussion (ED), Abrasion (ED), Skin Adhesive Care (ED), Facial Laceration (ED) Additional Instructions: Diagnoses: 1. Concussion 2. Migraine 3. Neck strain 4. Facial laceration 5. Multiple abrasions 6. Nasal injury Plan: Tylenol, methocarbamol muscle relaxant and if needed, Vicodin. No driving, alcohol if you take Vicodin. Avoid any ointment on the Dermabond as that would belted glue. It is okay to get the glue wet but do not scrub the area. Typically the glue wears off in 5- 10 days and by then the wound should be healed. In terms of the concussion, rest until he feel improved. Do not engage in activities but she risk for head injury until 7 days after resolution of here headache. Regarding her nasal injury, after 3-5 days and swelling is diminished feel that he are dissatisfied with the appearance of her nose after the injury, you can see Dr. Ruiz-ENT specialist for further evaluation Return emergency department for any significant worsening despite the treatment plan Prescriptions: Hydrocodone/APAP 5/325 [[place] 5/325 (*)] 1 - 2 tab PO Q4PRN PRN #15 tab PRN Reason: Pain Methocarbamol [Robaxin 750 mg (*)] 750 - 1,500 mg PO QID PRN #30 tab PRN Reason: Muscle Spasms Referrals: Dorothy May MD [Primary Care Provider] - As per Instructions Adonis Ruiz MD [Medical Doctor] - As per Instructions
[2018-01-05] MEDS ORDERED: SKIN ADHESIVE (DERMABOND) 1 EACH TP ONE (12:16)
[2018-01-05 13:23] VITALS: BP 126/70
== END 2018-01-05 12:56 | disposition home or self-care (01) ==
LOC: CED 10:05
PROC: 0HQ1XZZ Repair Face Skin, External Approach (ICD-10-PCS; principal; 2018-01-05)
DX: S06.0X0A Concussion without loss of consciousness, initial encounter (principal); S01.81XA Laceration without foreign body of other part of head, initial encounter; S16.1XXA Strain of muscle, fascia and tendon at neck level, initial encounter; G43.009 Migraine without aura, not intractable, without status migrainosus; S40.212A Abrasion of left shoulder, initial encounter; S80.212A Abrasion, left knee, initial encounter; E86.9 Volume depletion, unspecified; W18.39XA Other fall on same level, initial encounter
CPT/HCPCS: 12011; 96361; 96374; 96375; 99284; J1200; J2765

== ENCOUNTER 2018-04-26 09:30 | Day surgery (SDC) | payer OTHER, MEDICARE ==
[2018-04-26] MEDS ORDERED: LIDOCAINE 1% 300 MG/30 ML SDV SC ONE (09:37)
--- NOTE | 2018-04-26 10:33 | PDCTREPORT ---
Cardiothoracic Procedure Rpt Cardiothoracic Procedure Report: Procedure: Implantation of a loop recorder After obtaining informed consent left anterior chest was sterilely prepped and draped. Small area was anesthetized with 2% xylocaine. Stab wound was made. The loop recorder was then inserted under the skin using a subcutaneous technique. 3 kennedi were applied to close the incision. Conclusions successful implantation of a loop recorder. Patient Problems: Problems Problem Status Onset Chest pain Acute Shortness of breath Acute
== END 2018-04-26 11:00 | disposition home or self-care (01) ==
LOC: FCATH 09:30
PROVIDERS: ATTEND Internal Medicine Interventional Cardiology
PROC: 0JH602Z Insertion of Monitoring Device into Chest Subcutaneous Tissue and Fascia, Open Approach (ICD-10-PCS; principal; 2018-04-26)
DX: R55 Syncope and collapse (principal)
CPT/HCPCS: C1764

== ENCOUNTER → 2018-08-15 | Outpatient (CLI) | payer OTHER, MEDICARE | LOC: CIMAGING 13:12 | PROVIDERS: ATTEND Obstetrics & Gynecology | DX: N64.4 Mastodynia (principal); N60.02 Solitary cyst of left breast; Z95.0 Presence of cardiac pacemaker | CPT/HCPCS: 76641-PO ==

== ENCOUNTER → 2018-10-26 | Outpatient (CLI) | payer OTHER, MEDICARE | LOC: EDSTATUS 10:16 → EMCIMAGING 18:41 | PROVIDERS: ATTEND Nurse Practitioner Acute Care | DX: S92.512A Displaced fracture of proximal phalanx of left lesser toe(s), initial encounter for closed fracture (principal) | CPT/HCPCS: 73630-PN ==